=== PATIENT | male | born 1945 | race Caucasian/White ===

== ENCOUNTER 2017-08-12 13:39 | Day surgery (SDC) | payer MEDICARE, BC ==
[2017-08-09 10:14] LABS: BASOPHILS # (AUTO) 0.1 X10'3 (0-0.2); BASOPHILS % (AUTO) 0.9 % (0-1); EOSINOPHILS # (AUTO) 0.2 X10'3 (0-0.9); EOSINOPHILS % (AUTO) 3.6 % (0-6); HEMATOCRIT 43.4 % (42.0-52.0); LYMPHOCYTES # (AUTO) 1.5 X10'3 (1.1-4.8); LYMPHOCYTES % (AUTO) 25.6 % (21-51); MEAN CORPUSCULAR HEMOGLOBIN 31.2 PG (27.0-31.0); MEAN CORPUSCULAR HGB CONC 34.6 % (33.0-36.5); MEAN CORPUSCULAR VOLUME 90.2 FL (78-98); MEAN PLATELET VOLUME 7.7 FL (7.4-10.4); MONOCYTES # (AUTO) 0.6 X10'3 (0-0.9); NEUTROPHILS # (AUTO) 3.5 X10'3 (1.8-7.7); NEUTROPHILS % (AUTO) 59.9 % (42-75); PLATELET COUNT 200 X10'3 (140-440); RED BLOOD COUNT 4.82 X10'6 (4.70-6.10); RED CELL DISTRIBUTION WIDTH 12.9 % (11.5-14.5); WHITE BLOOD COUNT 5.8 X10'3 (4.5-11.0)
[2017-08-09 10:25] LABS: ALBUMIN 3.7 G/DL (3.4-5.0); ANION GAP 10 (8-16); BLOOD UREA NITROGEN 19 MG/DL (7-18); BUN/CREATININE RATIO 17.3 (5.4-32.0); CALCIUM 8.9 MG/DL (8.5-10.1); CHLORIDE 106 MMOL/L (99-107); GLUCOSE 98 MG/DL (70-104); PARTIAL THROMBOPLASTIN TIME 24 SECONDS (22-32); POTASSIUM 4.2 MMOL/L (3.5-5.1); SODIUM 141 MMOL/L (135-145); TOTAL CARBON DIOXIDE 25.5 MMOL/L (24-32); eGFR 66 ML/MIN
[2017-08-12] VITALS (11 sets, daily range): BP systolic 100–185; BP diastolic 55–95
[~2017-08-12] VITALS: Ht 177.8 cm; Wt 82.2 kg
[~2017-08-12 13:39] MED LIST: ASPI-611 PO; ATOR80TA PO; HYDR-3972 PO; LISI10TA4 PO; METO50TA16 PO
[2017-08-12] MEDS ORDERED: normal saline 1000ml 1,000 ML IV SCH ×2 (13:55→17:48)
[2017-08-12] MEDS ORDERED: METO25TA6 PO (13:55)
[2017-08-12] MEDS ORDERED: LORazepam 0.5 MG tablet PO PRN (13:55)
[2017-08-12] MEDS ORDERED: diphenhydrAMINE 25mg capsule PO PRN (13:55)
[2017-08-12] MEDS ORDERED: NITR0.4T51 SL (13:55)
[2017-08-12] MEDS ORDERED: LISI40TA4 PO (13:55)
[2017-08-12] MEDS ORDERED: CLOP75TA15 PO (13:55)
[2017-08-12] MEDS ORDERED: heparin 1,000 UNITS/NS 500ml 500 ML ONE (15:38)
[2017-08-12] MEDS ORDERED: atropine 0.1mg/ml 10ml syringe ONE (15:38)
[2017-08-12] MEDS ORDERED: iohexol 350 MG/ML 50ML vial IV ONE (15:38)
[2017-08-12] MEDS ORDERED: iohexol 350MG/ML 100ml bottle IV ONE ×2 (15:38→16:32)
[2017-08-12] MEDS ORDERED: phenylephrine 10mg/ml inj IV ONE (15:38)
[2017-08-12] MEDS ORDERED: LIDOcaine 1%/PF (10mg/ml) 5ml vial ONE ×2 (15:55→15:56)
[2017-08-12] MEDS ORDERED: heparin 1,000unit/ml 10ml vial 10 ML ONE ×2 (16:11→16:19)
[2017-08-12] MEDS ORDERED: fentaNYL/PF 50MCG/1 ML 2ML syringe ONE (16:40)
[2017-08-12] MEDS ORDERED: clopidogrel 300mg tablet ONE (17:07)
[2017-08-12] MEDS ORDERED: hydrALAZINE 20mg/ml inj. IV PRN (17:55)
[2017-08-12] MEDS ORDERED: OXAZEpam 15mg capsule PO PRN (17:55)
[2017-08-12] MEDS ORDERED: proCHLORperazine 10 MG/2 ml inj IV PRN (17:55)
[2017-08-12] MEDS ORDERED: DOPamine 400mg/D5W 250ml 250 ML IV SCH (17:55)
[2017-08-12] MEDS ORDERED: HYDROcodone/acetaminophen 5mg/325mg tablet PO PRN (17:55)
[2017-08-12] MEDS ORDERED: pseudoephedrine 30mg tablet PO PRN (17:55)
[2017-08-12] MEDS ORDERED: nitroGLYCERIN 0.4mg SUBLingual tab SL PRN ×2 (17:55→18:00)
[2017-08-12] MEDS: HYDROcodone/acetaminophen 10/325mg tab PO PRN (19:11)
[2017-08-12] MEDS: morphine 4 MG/ML inj SYRINge IV PRN (19:30)
[2017-08-12] MEDS: metoprolol tartrate 25mg tablet PO SCH (20:00)
[2017-08-13] MEDS: morphine 4 MG/ML inj SYRINge IV PRN (00:46)
[2017-08-13 03:00] VITALS: BP 125/69
[2017-08-13 06:00] VITALS: BP 134/71
[2017-08-13 07:05] LABS: CHOL/HDL RATIO 2.6 (0.00-4.99); CHOLESTEROL 126 MG/DL (0-200); HDL CHOLESTEROL 49 MG/DL (35-60); LDL CHOLESTEROL 64 MG/DL (50-100); TRIGLYCERIDES 83 MG/DL (20-135)
[2017-08-13] MEDS: metoprolol tartrate 25mg tablet PO SCH (07:50)
[2017-08-13] MEDS: HYDROcodone/acetaminophen 10/325mg tab PO PRN (07:50)
[2017-08-13] MEDS ORDERED: clopidogrel 75mg tablet PO SCH (08:00)
[2017-08-13] MEDS ORDERED: aspirin 81mg tab.chew PO SCH (08:00)
[2017-08-13] MEDS ORDERED: atorvastatin 20mg tablet PO SCH (08:00)
[2017-08-13] MEDS ORDERED: lisinopril 20mg tablet PO SCH (08:00)
== END 2017-08-13 10:50 | disposition home or self-care (01) ==
LOC: SSTAY O 13:39 → PCU 3S 19:15 → SSTAY O 08-13 10:50
PROVIDERS: ATTEND Internal Medicine Interventional Cardiology
DX: I65.21 Occlusion and stenosis of right carotid artery (principal); E78.5 Hyperlipidemia, unspecified; I25.810 Atherosclerosis of coronary artery bypass graft(s) without angina pectoris; I21.4 Non-ST elevation (NSTEMI) myocardial infarction; I51.7 Cardiomegaly; I25.5 Ischemic cardiomyopathy; I10 Essential (primary) hypertension; Z79.82 Long term (current) use of aspirin; Z95.1 Presence of aortocoronary bypass graft; Z86.74 Personal history of sudden cardiac arrest; Z87.891 Personal history of nicotine dependence; Z72.89 Other problems related to lifestyle; Z98.890 Other specified postprocedural states; Z79.899 Other long term (current) drug therapy
CPT/HCPCS: 36415; 37215; 80048; 80061; 85025; 85610; 85730; 93005; A6257; C1725; C1760; C1769; C1876; C1884; C1887; C1894; J1644; J2001; J2270; J2370; J3010; J7030; Q0163; Q9967; A4620; J0461